=== PATIENT | male | born 1965 | race Caucasian/White ===

== ENCOUNTER 2021-10-04 16:21 | Emergency (ER) | payer SELFPAY ==
[~2021-10-04] VITALS: Ht 182.9 cm; Wt 101.5 kg
[2021-10-04 16:41] VITALS: BP 168/106
[2021-10-04] MEDS ORDERED: DOXY-1 PO (17:13)
[2021-10-04] MEDS ORDERED: DOXYCYCLINE 100MG CAPSULE PO STA (17:14)
[2021-10-04] MEDS ORDERED: dexamethasone 4mg tablet PO ONE (17:15)
== END 2021-10-04 17:37 | disposition home or self-care (01) ==
LOC: ER 16:22
DX: S00.36XA Insect bite (nonvenomous) of nose, initial encounter (principal); R51.9 Headache, unspecified; Z59.00 Homelessness unspecified; Z88.8 Allergy status to other drugs, medicaments and biological substances; Z79.2 Long term (current) use of antibiotics; W57.XXXA Bitten or stung by nonvenomous insect and other nonvenomous arthropods, initial encounter; Y93.89 Activity, other specified; Y92.89 Other specified places as the place of occurrence of the external cause; Y99.8 Other external cause status
CPT/HCPCS: 99283

== ENCOUNTER 2022-05-13 14:04 | Emergency (ER) | payer MEDICAID ==
[~2022-05-13] VITALS: Ht 182.9 cm; Wt 113.6 kg
[2022-05-13 16:05] VITALS: BP 155/102
[2022-05-13] MEDS ORDERED: triamcinolone acetonide 40mg/ml inj IM ONE (16:25)
== END 2022-05-13 16:50 | disposition home or self-care (01) ==
LOC: ER 14:05
DX: L23.7 Allergic contact dermatitis due to plants, except food (principal); Z79.899 Other long term (current) drug therapy; Z88.5 Allergy status to narcotic agent
CPT/HCPCS: 96372; 99283; J3301

== ENCOUNTER 2022-06-04 16:13 | Emergency (ER) | payer MEDICAID ==
[~2022-06-04] VITALS: Ht 182.9 cm; Wt 113.0 kg
[2022-06-04 17:12] VITALS: BP 146/113
[2022-06-04 17:53] LABS: BASOPHILS % (AUTO) 0.4 % (0-1); EOSINOPHILS # (AUTO) 0.1 X10'3 (0-0.9); EOSINOPHILS % (AUTO) 0.9 % (0-6); HEMATOCRIT 48.9 % (42.0-52.0); HEMOGLOBIN 16.4 g/dl (14.0-17.9); LYMPHOCYTES # (AUTO) 0.8 X10'3 (1.1-4.8); LYMPHOCYTES % (AUTO) 8.9 % (21-51); MEAN CORPUSCULAR HEMOGLOBIN 30.3 PG (27.0-31.0); MEAN CORPUSCULAR HGB CONC 33.5 g/dL (33.0-36.5); MEAN CORPUSCULAR VOLUME 90.5 FL (78-98); MEAN PLATELET VOLUME 9.1 FL (7.4-10.4); MONOCYTES # (AUTO) 0.4 X10'3 (0-0.9); MONOCYTES % (AUTO) 4.7 % (2-12); NEUTROPHILS # (AUTO) 7.4 X10'3 (1.8-7.7); NEUTROPHILS % (AUTO) 85.1 % (42-75); PLATELET COUNT 205 X10'3 (140-440); RED BLOOD COUNT 5.41 X10'6 (4.70-6.10); RED CELL DISTRIBUTION WIDTH 14.2 % (11.5-14.5); WHITE BLOOD COUNT 8.7 X10'3 (4.5-11.0)
[2022-06-04 18:06] LABS: ALANINE AMINOTRANSFERASE 72 U/L (12-78); ALBUMIN 4.4 G/DL (3.4-5.0); ALBUMIN/GLOBULIN RATIO 1.2 (1.1-1.5); ALKALINE PHOSPHATASE 79 IU/L (46-116); ANION GAP 8 (8-16); ASPARTATE AMINO TRANSFERASE 35 U/L (10-37); BILIRUBIN,TOTAL 1.3 MG/DL (0.1-1.0); BLOOD UREA NITROGEN 18 MG/DL (7-18); BUN/CREATININE RATIO 16.7 (5.4-32.0); CALCIUM 9.3 MG/DL (8.5-10.1); CHLORIDE 105 MMOL/L (99-107); CREATININE 1.08 MG/DL (0.60-1.10); GLUCOSE 111 MG/DL (70-104); LIPASE 79 U/L (73-393); POTASSIUM 3.5 MMOL/L (3.5-5.1); SODIUM 139 MMOL/L (135-145); TOTAL CARBON DIOXIDE 25.7 MMOL/L (24-32); TOTAL PROTEIN 8.2 G/DL (6.4-8.2); eGFR 70 ML/MIN
== END 2022-06-04 22:35 | disposition left against medical advice (07) ==
LOC: ER 16:14
DX: A05.9 Bacterial foodborne intoxication, unspecified (principal); R10.9 Unspecified abdominal pain; R11.10 Vomiting, unspecified; Z53.21 Procedure and treatment not carried out due to patient leaving prior to being seen by health care provider
CPT/HCPCS: 36415; 80053; 83690; 85025